=== PATIENT | male | born 1960 | race Caucasian/White ===

== ENCOUNTER 2017-01-22 17:26 | Emergency (ER) | payer OTHER ==
[2017-01-22 18:31] VITALS: BP 104/80
--- NOTE | 2017-01-22 19:22 | UC ---
Elbow Pain - HPI Summary HPI Summary: The patient comes in today for: 1. Elbow swelling (left elbow). Onset: 3days ago. Palliative/provocative: Nothing makes it better or worse. Quality: "Not tender at all." Region/radiation: Left elbow. Severity: 0/10 Time: Constant. Associated symptoms: "It is not exceedingly tender." Fevers: None Puffiness showed up this Sunday. Injury: None--he does not remember striking against anything. Previous disease: He has had bilateral bursitis of the elbows in 1994. This was from a "bad MMR reaction." He had also arthritis reaction. Treatment: None. It was bleeding 4 days ago. He states that he has had a scratch on the left elbow 4 days ago with a little bit of blood. However, over the next several days the elbow has been about the same. * - History of Current Complaint Chief Complaint: UCUpperExtremity Stated Complaint: ELBOW COMPLAINT Time Seen by Provider: 01/22/17 19:16 Hx Obtained From: Patient - Allergies/Home Medications Allergies/Adverse Reactions: Allergies Allergy/AdvReac Type Severity Reaction Status Date / Time No Known Allergies Allergy Verified 02/14/16 17:31 PMH/Surg Hx/FS Hx/Imm Hx Previously Healthy: Yes - "Arthritic like reaction"--on Azulfidine, celebrex. Endocrine History Of: Denies: Diabetes, Thyroid Disease, Hyperthyroidism, Hypothyroidism, Dyslipidemia Cardiovascular History Of: Denies: Cardiac Disorders, Hypertension, Pacemaker/ICD, Myocardial Infarction , Congestive Heart Failure, Atrial Fibrillation, Deep Vein Thrombosis, Bleeding Disorders Respiratory History Of: Denies: COPD, Asthma, Bronchitis, Pneumonia, Pulmonary Embolism GI/ History Of: Denies: Gastroesophageal Reflux, Ulcer, Gastrointestinal Bleed, Gall Bladder Disease, Kidney Stones, Diverticulitis, Renal Disease, Urosepsis Neurological History Of: Denies: TIA, CVA, Dementia, Seizures, Migraine Psychological History Of: Denies: Anxiety, Depression, Bipolar Disorder, Schizophrenia, Post Traumatic Stress Disorder Cancer History Of: Denies: Lung Cancer, Colorectal Cancer, Breast Cancer, Prostate Cancer, Cervical Cancer Other History Of: Negative For: HIV, Hepatitis B, Hepatitis C, Anticoagulant Therapy - Surgical History Surgical History: Yes Surgery Procedure, Year, and Place: DENTAL - Family History Known Family History: Positive: Cardiac Disease - MGF - Social History Occupation: Employed Full-time Alcohol Use: Rare Substance Use Type: None Smoking Status (MU): Never Smoked Tobacco Have You Smoked in the Last Year: No Review of Systems Constitutional: Negative Skin: Rash Eyes: Negative ENT: Negative Respiratory: Negative Cardiovascular: Negative Gastrointestinal: Negative Genitourinary: Negative Motor: Negative All Other Systems Reviewed And Are Negative: Yes Physical Exam Triage Information Reviewed: Yes Appearance: Well-Appearing, No Pain Distress, Well-Nourished Vital Signs: Initial Vital Signs Temp 99.2 F 01/22/17 18:24 Pulse 103 01/22/17 18:24 Resp 18 01/22/17 18:24 BP 104/80 01/22/17 18:24 Pulse Ox 98 01/22/17 18:24 Pulse: 100 Vital Signs Reviewed: Yes Eyes: Positive: Conjunctiva Clear. Negative: Discharge ENT: Positive: Hearing grossly normal. Negative: Pharyngeal erythema, Nasal congestion, Nasal drainage, TM bulging, TM dull, TM red, Tonsillar swelling, Tonsillar exudate Dental: Negative: Gross Decay/Caries @, Dental Fracture @ Neck: Positive: Supple, Nontender, No Lymphadenopathy. Negative: Nuchal Rigidity Respiratory: Positive: Lungs clear, No respiratory distress, No accessory muscle use. Negative: Crackles Cardiovascular: Positive: RRR, No Murmur Abdomen Description: Positive: Nontender, No Organomegaly, Soft. Negative: Distended, Guarding Musculoskeletal: Positive: Strength Intact, ROM Intact Neurological: Positive: Alert, Muscle Tone Normal Psychological: Positive: Age Appropriate Behavior, Consolable Skin: Positive: rashes - He has a few erythematous macules of the left forearm. , Other - The left olecranon bursa is full with minimal tenderness or erythema. There is scale and a small scab on the left elbow at the bursa site.. Negative: breakdown Elbow Pain Course/Dx - Course Course Of Treatment: Patient was told of the two types of olecranon bursitis-- inflammatory vs infectious. Since his left olecranon bursitis is minimally tender with minimal redness, he was told that it appears that his is more inflammatory. He does not want it tapped. - Differential Dx/Diagnosis Provider Diagnoses: Left olecranon bursitis Discharge - Discharge Plan Condition: Stable Disposition: HOME Patient Education Materials: Elbow Bursitis (ED) Referrals: Simba Hunt MD [Primary Care Provider] - 1 Week (Please see your primary care provider later this week for a re-evaluation. If you get worse, please be seen sooner.)
== END 2017-01-22 19:55 | disposition home or self-care (01) ==
LOC: UCEAST 17:26
DX: M70.22 Olecranon bursitis, left elbow (principal); Y93.9 Activity, unspecified
CPT/HCPCS: 99211; G0463

== ENCOUNTER 2018-06-18 14:18 | Emergency (ER) | payer OTHER ==
--- NOTE | 2018-06-18 14:31 | UC ---
Skin Complaint HPI - HPI Summary HPI Summary: 57 yo male presents with tick exposure. He tells me that 6 days ago he was in his house and noticed a tick on the ground. He noticed it was engorged, so he stepped on it and a lot of blood spurted out. The next day he developed neck pain with turning his head and feels that his "glands" are swollen. This has persisted to today. He is concerned that he has lyme disease. He is unsure if the tick was attached to him as he never noticed it attached. Did not develop a rash and does not have a tick bite on his body. Denies fever, chills, sore throat, cough, SOB, chest pain. - History of Current Complaint Chief Complaint: UCSkin Time Seen by Provider: 06/18/18 14:30 Stated Complaint: TICK BITE Hx Obtained From: Patient Onset Severity: Mild Current Severity: Mild Pain Intensity: 4 Pain Scale Used: 0-10 Numeric - Allergy/Home Medications Allergies/Adverse Reactions: Allergies Allergy/AdvReac Type Severity Reaction Status Date / Time No Known Allergies Allergy Verified 06/18/18 14:32 Review of Systems Constitutional: Negative Skin: Negative Eyes: Negative ENT: Negative Respiratory: Negative Cardiovascular: Negative Gastrointestinal: Negative Motor: Negative Neurovascular: Negative Musculoskeletal: Other: - Neck pain Neurological: Negative Psychological: Negative All Other Systems Reviewed And Are Negative: Yes PMH/Surg Hx/FS Hx/Imm Hx - Additional Past Medical History Additional PMH: Rheumatoid Arthritis Other History Of: Negative For: HIV, Hepatitis B, Hepatitis C, Anticoagulant Therapy - Surgical History Surgical History: Yes Surgery Procedure, Year, and Place: DENTAL - Family History Known Family History: Positive: Cardiac Disease - MGF - Social History Occupation: Employed Full-time Lives: With Family Alcohol Use: Rare Substance Use Type: None Smoking Status (MU): Never Smoked Tobacco Have You Smoked in the Last Year: No Physical Exam - Summary Physical Exam Summary: GENERAL: NAD. WDWN. No pain distress. SKIN: No rashes, sores, lesions, or open wounds. HEENT: Head: AT/NC Eyes: EOM intact. Conjunctiva clear without inflammation or discharge. Ears: Hearing grossly normal. TMs intact, no bulging, erythema, or edema. Nose: Nasal mucosa pink and moist. NTTP maxillary and frontal sinus. Throat: Posterior oropharynx without exudates, erythema, or tonsillar enlargement. Uvula midline. NECK: Supple. Nontender. No lymphadenopathy. CHEST: CTAB. No r/r/w. No accessory muscle use. Breathing comfortably and in no distress. CV: RRR. Without m/r/g. Pulses intact. Cap refill <2seconds MSK: Cervical spine: Mild discomfort with turning side to side. FROM. NTTP. No vertebral tenderness. Negative spurlings. NEURO: Alert. CN II-XII grossly intact. PSYCH: Age appropriate behavior. Triage Information Reviewed: Yes Vital Signs: Vital Signs: Temp Pulse Resp BP Pulse Ox 97.7 F 103 18 121/72 97 06/18/18 14:27 06/18/18 14:27 06/18/18 14:27 06/18/18 14:27 06/18/18 14:27 Vital Signs Reviewed: Yes Course/Dx - Course Course Of Treatment: Suspect muscle strain and discussed that it is highly unlikely that he has lyme disease. He is requesting lab testing, but we will hold off on any treatment until results return. Pt agreeable to plan - Diagnoses Provider Diagnoses: Neck pain. Exposure to tick Discharge - Sign-Out/Discharge Documenting (check all that apply): Patient Departure All imaging exams completed and their final reports reviewed: No Studies - Discharge Plan Condition: Stable Disposition: HOME Patient Education Materials: Lyme Disease (ED), Tick Bite (ED) Referrals: Tom Clark NP [Primary Care Provider] - Additional Instructions: If you develop a fever, shortness of breath, chest pain, new or worsening symptoms - please call your PCP or go to the ED. TICK BITE: Tick fever, tick paralysis, [place] Spotted fever, and Lyme disease are uncommon -- but you should mention this tick bite to your doctor if you develop unusual symptoms in the next several weeks. If you develop any of the following, please see your physician promptly: (1) Fever, chills, or generalized malaise associated with a headache. (2) A red round area at the site of the bite (or elsewhere) (3) Joint pain, joint swelling or generalized weakness. (4) Redness, swelling, or drainage at the site of the bite. - Billing Disposition and Condition Condition: STABLE Disposition: Home - Attestation Statements Provider Attestation: Per institutional requirements, I have reviewed the chart, however, I was not consulted specifically or made aware of this patient by the above midlevel provider. I did not personally evaluate, interact with , or disposition this patient.
[2018-06-18 14:32] VITALS: BP 121/72
== END 2018-06-18 14:50 | disposition home or self-care (01) ==
LOC: UCEAST 14:18
DX: M54.2 Cervicalgia (principal); Z20.89 Contact with and (suspected) exposure to other communicable diseases
CPT/HCPCS: 86618; 99211; G0463

== ENCOUNTER 2019-08-15 17:00 | Emergency (ER) | payer OTHER ==
[2019-08-15 17:21] VITALS: BP 108/71
--- NOTE | 2019-08-15 17:51 | UC ---
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 He has had a week and a half history of pain and swelling of his right second toe. Large blistered developed over the PIP joint of that toe. About 9 days ago he lanced the blister. He states that it drained a lot of pus. Since that time he has been cleaning his toe twice a day and apply Neosporin ointment. It hurts to weight-bear. He denies any trauma. His entire toe is red and swollen. He denies any fever or chills. He denies any history of MRSA infections. - History of Current Complaint Chief Complaint: UCLowerExtremity Stated Complaint: SKIN ISSUE ON TOE Time Seen by Provider: 08/15/19 17:43 Hx Obtained From: Patient Onset/Duration: Gradual Onset, Lasting Days Severity Initially: Moderate Severity Currently: Moderate Pain Intensity: 8 Aggravating Factor(s): Standing, Ambulation Alleviating Factor(s): Rest, Elevation Able to Bear Weight: Yes Feet (Multiple View): 1 - ulcerarion/hammer toe deformity, entire toe with fusiform swelling and erthyema - Allergies/Home Medications Allergies/Adverse Reactions: Allergies Allergy/AdvReac Type Severity Reaction Status Date / Time No Known Allergies Allergy Verified 08/15/19 17:21 Home Medications: Home Medications Adalimumab [Humira] 10 mg SUBCUT DAILY 08/15/19 [History Confirmed 08/15/19] PMH/Surg Hx/FS Hx/Imm Hx Previously Healthy: Yes Other History Of: Negative For: HIV, Hepatitis B, Hepatitis C, Anticoagulant Therapy - Surgical History Surgical History: Yes Surgery Procedure, Year, and Place: DENTAL - Family History Known Family History: Positive: Cardiac Disease - MGF - Social History Alcohol Use: Rare Substance Use Type: None Smoking Status (MU): Never Smoked Tobacco Have You Smoked in the Last Year: No Review of Systems All Other Systems Reviewed And Are Negative: Yes Constitutional: Positive: Negative Skin: Positive: Negative Eyes: Positive: Negative ENT: Positive: Negative Respiratory: Positive: Negative Cardiovascular: Positive: Negative Gastrointestinal: Positive: Negative Genitourinary: Positive: Negative Motor: Positive: Negative Neurovascular: Positive: Negative Musculoskeletal: Positive: Arthralgia - rigth second toe Neurological: Positive: Negative Psychological: Positive: Negative Physical Exam Triage Information Reviewed: Yes Appearance: Well-Appearing, No Pain Distress, Well-Nourished Vital Signs: Initial Vital Signs Temp 98.4 F 08/15/19 17:15 Pulse 78 08/15/19 17:15 Resp 16 08/15/19 17:15 BP 108/71 08/15/19 17:15 Pulse Ox 96 08/15/19 17:15 Vital Signs Reviewed: Yes Eyes: Positive: Conjunctiva Clear ENT: Positive: Hearing grossly normal. Negative: Nasal congestion, Nasal drainage, Tonsillar swelling, Tonsillar exudate, Hoarse voice Neck: Positive: Supple, Nontender, No Lymphadenopathy Respiratory: Positive: Lungs clear, Normal breath sounds, No respiratory distress Cardiovascular: Positive: RRR, No Murmur Musculoskeletal: Positive: ROM Limited @ - multiple deformities, Other: - multiple deformed joints Neurological: Positive: Alert Psychological Exam: Normal Skin Exam: Normal Lower Extremity Course/Dx - Differential Dx/Diagnosis Provider Diagnosis: Cellulitis of left toe Discharge ED - Sign-Out/Discharge Documenting (check all that apply): Patient Departure All imaging exams completed and their final reports reviewed: No Studies - Discharge Plan Condition: Stable Disposition: HOME Prescriptions: DOXYcycline CAP(*) [DOXYcycline 100MG CAP(*)] 100 mg PO BID #20 cap Mupirocin 2% OINT* [Bactroban 2 % Oint*] 1 applic TOPICAL TID #1 tube Patient Education Materials: Cellulitis (ED), Post Surgical Shoe (ED) Referrals: Tom Clark NP [Primary Care Provider] - As Soon As Possible (recheck next week) Additional Instructions: gently clean twice daily with soap and water gently dry apply bactroban to raw/open area bandaid post op shoe rest elevate recheck for worsening symptoms see your provider next week a culture is pending - Billing Disposition and Condition Condition: STABLE Disposition: Home
--- NOTE | 2019-08-19 15:51 | UC ---
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 Patient is on appropriate treatment with doxycycline. Course/Dx - Diagnoses Provider Diagnoses: Cellulitis of left toe Discharge ED - Sign-Out/Discharge Documenting (check all that apply): Post-Discharge Follow Up All imaging exams completed and their final reports reviewed: No Studies - Discharge Plan Condition: Stable Disposition: HOME Prescriptions: DOXYcycline CAP(*) [DOXYcycline 100MG CAP(*)] 100 mg PO BID #20 cap Mupirocin 2% OINT* [Bactroban 2 % Oint*] 1 applic TOPICAL TID #1 tube Patient Education Materials: Cellulitis (ED), Post Surgical Shoe (ED) Referrals: Tom Clark NP [Primary Care Provider] - As Soon As Possible (recheck next week) Additional Instructions: gently clean twice daily with soap and water gently dry apply bactroban to raw/open area bandaid post op shoe rest elevate recheck for worsening symptoms see your provider next week a culture is pending - Billing Disposition and Condition Condition: STABLE Disposition: Home
== END 2019-08-15 18:19 | disposition home or self-care (01) ==
LOC: UCEAST 17:00
DX: L03.032 Cellulitis of left toe (principal); M25.572 Pain in left ankle and joints of left foot
CPT/HCPCS: 87070; 87077; 87106; 87186; 87205; 99213; G0463